=== PATIENT | male | born 1945 | race Caucasian/White ===

== ENCOUNTER 2019-10-06 17:34 | Inpatient (IN) | payer OTHER, MEDICARE ==
[~2019-10-06] VITALS: Ht 182.9 cm; Wt 112.2 kg
[2019-10-06] MEDS ORDERED: CRESTOR (18:07)
[2019-10-06] MEDS ORDERED: TRAZODONE (18:07)
--- NOTE | 2019-10-06 18:13 | NUR ---
PT TO ED AFTER LIGHT HEADEDNESS WHILE DRIVING AT 1745. PT REPORTS ASSOCIATED NAUSEA AND SOB. PT CONNECTED TO ALL MONITORS AND TO CRASH CART/DEFIB PADS. INTERMITTENT 3RD DEGREE HB/SR 70S. ALL OTHER VSS ON RA. DR. DU TO BS FOR ASSESSMENT. PIV ESTABLISHED AND LABS DRAWN. ATROPINE ADMINISTERED WITH NO EFFECT. 1L NS BOLUS STARTED. REPEAT EKG OBTAINED. DR. DU TO BS FOR ASSESSMENT. CARDIOLOGY CONSULTED AND WILL BE BS SHORTLY. NO NEEDS EXPRESSED. CALL LIGHT WITHIN REACH.
[2019-10-06] MEDS ORDERED: SODIUM CHLORIDE 0.9% 1,000ML IVBOLUS ONE (18:30)
[2019-10-06] MEDS ORDERED: ATROPINE SYRINGE 0.1 MG/ML, 10ML IVPush ONE (18:30)
[2019-10-06 18:34] LABS: BASOPHILS # (AUTO) 0.04 x10^3/uL (0-0.1); BASOPHILS % (AUTO) 1 % (0-1); EOSINOPHILS # (AUTO) 0.18 x10^3/uL (0-0.4); EOSINOPHILS % (AUTO) 2 % (1-7); LYMPHOCYTES # (AUTO) 1.97 x10^3/uL (1-3.4); LYMPHOCYTES % (AUTO) 27 % (22-44); MD NO; MEAN CORPUSCULAR HEMOGLOBIN 31.3 pg (27.5-34.5); MEAN CORPUSCULAR VOLUME 94.7 fL (81-97); MEAN PLATELET VOLUME 9.2 fL (7.4-10.4); MONOCYTES # (AUTO) 0.58 x10^3/uL (0.2-0.8); MONOCYTES % (AUTO) 8 % (2-9); NEUTROPHILS # (AUTO) 4.59 x10^3/uL (1.8-6.8); NEUTROPHILS % (AUTO) 62 % (42-75); PLATELET COUNT 179 x10^3/uL (130-400); RED BLOOD COUNT 4.47 x10^6/uL (4.38-5.82)
[2019-10-06 18:44] LABS: ALBUMIN 3.7 g/dL (3.4-5.0); ANION GAP 4 mmol/L (5-15); CALCIUM 8.5 mg/dL (8.5-10.1); CHLORIDE 106 mmol/L (98-107); CREATININE 1.32 mg/dL (0.7-1.3)
[2019-10-06 18:47] LABS: TROPONIN I < 0.015 ng/mL (0.000-0.045)
--- NOTE | 2019-10-06 19:02 | NUR ---
PT AMB TO DC DESK WITH STEADY GAIT AND ALL BELONGINGS. ALL QUESTIONS ANSWERED.
--- NOTE | 2019-10-06 19:02 | NUR ---
Note marilyn in EDM - 10/06/19 at 1902 by [email or web address] PT AMB TO DC DESK WITH STEADY GAIT AND ALL BELONGINGS. ALL QUESTIONS ANSWERED.
--- NOTE | 2019-10-06 19:02 | NUR ---
RECEIVED BS REPORT FROM MIKE DUPREE TO ASSUME CARE OF PT. PT. RESTING ON GURNEY IN SUPINE POSITION. PALE SKIN NOTED. PT. A&O X 4. C/O FEELING WEAK, DENIES CP STATE "I AM AWARE SOMETHING IS GOING ON IN MY CHEST THOUGH". PT. IN 3RD DEGREE HEART BLOCK. PADS, AND ALL MONITORS IN PLACE. CODE CART AT BS. AT BS FOR SUPPORT. PT. DENIES NEEDS AT THIS TIME. ONLY C/O MILD SOB. 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 ALL SAFETY MEASURES IN PLACE.
--- NOTE | 2019-10-06 19:02 | NUR ---
BS REPORT TO MIKE OLIVEIRA.
--- NOTE | 2019-10-06 19:19 | NUR ---
ASSISTED PT TO VOID VIA URINAL; 350ML OF CLEAR YELLOW URINE. PT. CONTINUES TO C/O MILD SOB BUT DENIES OTHER COMPLAINTS. MONITORING CLOSELY.
--- NOTE | 2019-10-06 19:31 | NUR ---
DR. DU IN TO RE-EVAL PT. AND DISCUSS POC AT THIS TIME. PT. REMAINS ALERT AND TALKING WITH STAFF. VS UPDATED AND REMAIN STABLE. AWAITNG MANAGER SQL. ALL MONITORS AND SAFETY MEASURES REMAIN IN PLACE.
[2019-10-06] MEDS ORDERED: ROSU40TA PO (19:40)
[2019-10-06] MEDS ORDERED: TRAZ150T62 PO (19:40)
--- NOTE | 2019-10-06 20:10 | NUR ---
PT. CONTINUES TO AWAIT CARDIOLOGY EVAL. PT. REPORTS HE IS STARTING TO FEEL MORE TIRED BUT IS STILL ABLE TO COMMUNICATE AND IS ALERT. CHATTING WITH FAMILY AT BS AND VIA PHONE CALL. VS UPDATED AND REMAIN STABLE. ALL SAFETY MEASURES MAINTAINED.
[2019-10-06] MEDS ORDERED: ALLO300T PO (20:21)
--- NOTE | 2019-10-06 20:22 | NUR ---
CARDIOLOGY TO BS FOR EVAL AT THIS TIME.
--- NOTE | 2019-10-06 20:26 | NUR ---
PER CARDIOLOGY PT. TO GO ON DOPAMINE DRIP FOR TONIGHT AND HAVE PACEMAKER PLACED IN THE AM AT 0700.
--- NOTE | 2019-10-06 20:38 | NUR ---
MED REQUEST SENT TO PHARMACY.
[2019-10-06] MEDS: SODIUM CHLORIDE 0.9% 1,000 ML IV SCH ×3 (21:00→22:59)
[2019-10-06] MEDS ORDERED: DOPAMINE/D5W PMX 250 ML IV PRN ×2 (21:00)
--- NOTE | 2019-10-06 21:25 | NUR ---
CALLED DR. COTTER AT 2120 PT. STARTED TO C/O CP 10 MIN AFTER DOPAMINE STARTED PT. BECAME VERY NAUSEATED AND STARTED C/O CP. STOPPED PER DR. KURTZ AND WILL CONTINUE TO MONITOR WITHOUT DOPAMINE. PT. NOW ALREADY FEELING BETTER.
[2019-10-06] MEDS ORDERED: CEFAZOLIN PMX 1GM/50ML 50 ML IVPB ONE (21:30)
--- NOTE | 2019-10-06 22:04 | NUR ---
REPORT TO MIKE FREDERICK. FLOOR READY FOR PT. TRANSPORT. CALL TO DR. KURTZ TO UPDATE ON PT. CURRENT STATUS. MIKE FREDERICK AWARE TO CALL DR. KURTZ FOR ANY CHANGE.
[2019-10-06] MEDS: SODIUM CHLORIDE FLUSH 10ML SYR IVF SCH (22:59)
[2019-10-07 04:16] VITALS: BP 122/52
[2019-10-07] MEDS: SODIUM CHLORIDE 0.9% 1,000 ML IV SCH ×5 (05:10→18:28)
[2019-10-07] MEDS ORDERED: LIDOCAINE 1%, 20ML ONE ×2 (07:37→08:04)
[2019-10-07] MEDS ORDERED: LIDOCAINE-MPF 1%, 5ML ONE (07:37)
[2019-10-07] MEDS ORDERED: FENTANYL PF 250 MCG/5ML ONE (07:37)
[2019-10-07] MEDS ORDERED: NITROGLYCERIN 5 MG/ML, 10ML ONE (07:37)
[2019-10-07] MEDS ORDERED: MIDAZOLAM 1 MG/ML, 5ML ONE (07:37)
[2019-10-07] MEDS ORDERED: CEFAZOLIN PMX 1GM/50ML 50 ML ONE (07:37)
[2019-10-07] MEDS ORDERED: VERAPAMIL 2.5 MG/ML, 2ML ONE ×2 (07:37→09:04)
[2019-10-07] MEDS ORDERED: HEPARIN 1,000 UNITS/ML, 10ML ONE (07:37)
[2019-10-07] MEDS ORDERED: CEFAZOLIN 1,000 MG ONE (07:38)
[2019-10-07] MEDS ORDERED: ONDANSETRON 2MG/ML, 2ML ONE (07:47)
[2019-10-07] MEDS: ASPIRIN 81 MG TABLET EC PO SCH (08:00)
[2019-10-07] MEDS ORDERED: ACETAMINOPHEN 325 MG TABLET PO PRN ×2 (08:00→09:30)
[2019-10-07] MEDS ORDERED: OXYcodone/APAP 5/325MG TABLET PO PRN (08:00)
[2019-10-07] MEDS ORDERED: TICAGRELOR 90 MG TABLET ONE (09:04)
[2019-10-07] MEDS ORDERED: BIVALIRUDIN 250 MG ONE (09:04)
[2019-10-07] MEDS ORDERED: HOLD MEDICATION MC PRN (09:30)
[2019-10-07] MEDS ORDERED: PROMETHAZINE 25 MG/ML, 1ML ONE (10:49)
[2019-10-07] MEDS: SODIUM CHLORIDE FLUSH 10ML SYR IVF SCH ×2 (10:56→20:11)
[2019-10-07] MEDS ORDERED: ONDANSETRON 2MG/ML, 2ML IVPush PRN (11:00)
[2019-10-07] MEDS ORDERED: PROMETHAZINE 25 MG/ML, 1ML IM PRN (11:00)
[2019-10-07 12:33] LABS: ALANINE AMINOTRANSFERASE 38 U/L (12-78); ALBUMIN 3.2 g/dL (3.4-5.0); ANION GAP 3 mmol/L (5-15); CALCIUM 7.8 mg/dL (8.5-10.1); CHLORIDE 112 mmol/L (98-107)
[2019-10-07 12:38] LABS: ALKALINE PHOSPHATASE 61 U/L (45-117); BILIRUBIN,TOTAL 0.5 mg/dL (0.2-1.0); CHOL/HDL RATIO 2.8; CHOLESTEROL, TOTAL 102 mg/dL (140-239); CREATININE 1.17 mg/dL (0.7-1.3); HDL CHOL % 35 % (26-37); HDL CHOLESTEROL (DIRECT) 36 mg/dL (40-60); LDL CHOLESTEROL,CALCULATED 57 mg/dL (54-169); LDL/HDL RATIO 1.6 (0.5-3.0); TOTAL PROTEIN 6.5 g/dL (6.4-8.2); TRIGLYCERIDES 45 mg/dL (50-200); VLDL CHOLESTEROL 9 mg/dL (0-25)
[2019-10-07] MEDS: CEFAZOLIN PMX 1GM/50ML 50 ML IVPB SCH ×2 (15:40→23:51)
[2019-10-07 19:22] VITALS: BP 132/63
[2019-10-07] MEDS ORDERED: ATORVASTATIN 80 MG TABLET PO SCH (21:00)
[2019-10-07 23:58] VITALS: BP 145/68
[2019-10-08] MEDS: SODIUM CHLORIDE 0.9% 1,000 ML IV SCH ×2 (02:28→10:28)
[2019-10-08 04:14] LABS: ANION GAP 5 mmol/L (5-15); CALCIUM 8.1 mg/dL (8.5-10.1); CHLORIDE 110 mmol/L (98-107); CREATININE 1.13 mg/dL (0.7-1.3)
[2019-10-08] MEDS: ASPIRIN 81 MG TABLET EC PO SCH (05:05)
[2019-10-08 05:10] VITALS: BP 108/65
[2019-10-08 08:54] VITALS: BP 108/65
[2019-10-08] MEDS: SODIUM CHLORIDE FLUSH 10ML SYR IVF SCH (09:00)
[2019-10-08] MEDS ORDERED: ACET325T26 PO (09:21)
[2019-10-08] MEDS ORDERED: ASPI81TA45 PO (09:21)
== END 2019-10-08 17:30 | disposition home or self-care (01) | DRG 242 ==
LOC: ED 18:16 → EDIP 21:06 → ICU 22:10
PROVIDERS: ADMIT Internal Medicine; ATTEND Internal Medicine
PROC: 0JH606Z Insertion of Pacemaker, Dual Chamber into Chest Subcutaneous Tissue and Fascia, Open Approach (ICD-10-PCS; principal; 2019-10-07)
PROC: 02HK3JZ Insertion of Pacemaker Lead into Right Ventricle, Percutaneous Approach (ICD-10-PCS; 2019-10-07)
PROC: 02H63JZ Insertion of Pacemaker Lead into Right Atrium, Percutaneous Approach (ICD-10-PCS; 2019-10-07)
PROC: 4A023N7 Measurement of Cardiac Sampling and Pressure, Left Heart, Percutaneous Approach (ICD-10-PCS; 2019-10-07)
PROC: B211YZZ Fluoroscopy of Multiple Coronary Arteries using Other Contrast (ICD-10-PCS; 2019-10-07)
PROC: B215YZZ Fluoroscopy of Left Heart using Other Contrast (ICD-10-PCS; 2019-10-07)
PROC: 4A033BC Measurement of Arterial Pressure, Coronary, Percutaneous Approach (ICD-10-PCS; 2019-10-07)
DX: I44.2 Atrioventricular block, complete (principal); J12.9 Viral pneumonia, unspecified; E78.00 Pure hypercholesterolemia, unspecified; E78.5 Hyperlipidemia, unspecified; I25.10 Atherosclerotic heart disease of native coronary artery without angina pectoris; I45.10 Unspecified right bundle-branch block; N28.9 Disorder of kidney and ureter, unspecified; Z87.891 Personal history of nicotine dependence
CPT/HCPCS: 33208; 36415; 93458; J3490; 71045; 80048; 80053; 80061; 82040; 83880; 84443; 84484; 85025; 87081; 93005; 93306; 96374; 99156; 99157; C1769; C1779; C1785; C1892; C1894; G0378; J0461; J0583; J0690; J1265; J1644; J2250; J2405; J3010; C1887; J7030; Q9967